=== PATIENT | female | born 1955 | race African-American/Black ===

== ENCOUNTER 2020-02-24 12:39 | Inpatient (IN) | payer OTHER ==
[~2020-02-24] VITALS: Ht 170.2 cm; Wt 110.2 kg
[~2020-02-24 12:39] MED LIST: ADVIL100 M2 PO; AMBIEN 10 MG TA10 MG PO; AMITRIPTYLINE H25 M2 PO; ESTRACE0.5 MG PO; FLAGYL500 MG PO; KEFLEX500 MG PO; LIPITOR10 MG PO; LYRICA200 MG PO; METFORMIN HCL500 M2 PO; MORPHINE SULFAT15 M4 PO; NABUMETONE 500500 M1 PO; NEURONTIN 300300 M1 PO; NORCO 5-325 TA1 EACH PO; NORVASC 5 MG TAB5 MG PO; OMEPRAZOLE 20 M20 M1 PO; OXYCODONE HCL5 M1 PO; PERCOCET 5-3251 EACH PO; PERCOCET PO; PRISTIQ50 M1 PO; PRISTIQ50 MG PO; VICODIN 5-5001 EACH PO; WELLBUTRIN SR150 MG PO; ZANTAC 150MG T150 M1 PO
[2020-02-24 13:21] VITALS: BP 137/78
--- NOTE | 2020-02-24 14:33 | NUR ---
PT. ADMITTED FROM [facility]. SHE LIVES AT HOME AND CAME TO ER LAST NIGHT C/O MAJOR DEPRESSION AND SI WITH VAGUE IDEATION. SHE STATES SHE WAS DIAGNOSED 15 YEARS AGO WITH THE DEPRESSION. SHE STATES SHE HAS 3 GROWN DAUGHTERS THAT DO NOT TALK NICE TO HER WHICH CONTRIBUTES TO HER DEPRESSION. SHE LIVES ALONE IN AN APPARTMENT. HER DAUGHTERS CALL HER ON THE PHONE. SHE IS . SHE HAS A PMX OF HERNIA REPAIR, GALLBLADDER AND APPENDIX REMOVED, SURGERY TO HER LEFT KNEE 3 TIMES AND THEN IT WAS REPLACED. SHE ALSO HAVE A PLATE AND SCREWS IN HER RIGHT ANKLE. SHE HAS BEEN IN [facility] FOR MENTAL DEPRESSION BUT HAD TREATMENT THROUGH [facility]. SHE COMPLAINS OF GLOBAL PAIN THAT HAS BEEN TREATED BUT THE TREATMENTS HAVE NOT BEEN HELPFUL SO SHE REPORTS. SHE WAS TEARFUL THROUGHOUT THE INTERVIEW. SHE HAS A GOWN ON. SHE TOOK A SHOWER AFTER SHE GOT HERE. SHE DID RECEIVE LUNCH FROM THE KITCHEN. SHE STATES SHE HAS BACK ISSUES AND SHE RECEIVES INJECTIONS IN BACK, MUSCLE RELAXERS.
[2020-02-24 19:39] VITALS: BP 146/72
--- NOTE | 2020-02-25 04:53 | NUR ---
PT ALERT AND ORIENTED X4. AMBULATES INDEPENTLY. PT WAS IN HER ROOM TALKING WITH HER SISTER ON THE PHONE AT TIME OF ASSESSMENYT. PT WAS COOPERATIVE WITH ASSESSMENT. PT VOICED HAVING DEPRESSION, DENIES SI/HI AT THIS TIME. PT TOOK MEDS WHOLE THIS SHIFT. PT INFOMRED NURSING THAT SHE WAS UNABLE TO SLEEP, DESPITE GETTING HER SLEEP MEDS. FREDRICK MEDICAL TECHNICIAN PAGED. ONETIME MELATONIN ORDERED AND GIVEN. PT SELPT AFTERWARDS. PT CURRENTLY IN BED SLEEPING. WILL CONTINUE TO MONITOR.
[2020-02-25 08:29] VITALS: BP 126/57
--- NOTE | 2020-02-25 13:24 | NUR ---
Up ambulating in room with regular, steady gait. Alert and orientated X4. States she is depressed and concerned about how noisy it was last night. Also wants to be moved d/t roommate having sore on her bottom and using toilet. Roommate then told her she had been positive for COVID 19 and she expressed concern. Moved to 524 A per pt. request. Denies SI/HI. Breath sounds clear t/o, bilaterally equal. Reg HR auscultated. Color pink with brisk capillary refill and palpable peripheral pulses. No edema noted. Independent with voiding. Active bowel sounds over soft, rounded abdomen. States she is constipated. MOM given. Currently participating in group without s/o distress.
--- NOTE | 2020-02-25 15:12 | NUR ---
SW completed Psychosocial Assessment and Tx Plan for patient. During assessment, WILIAN has become aware that WILIAN knows 2 of patient's daughters and her son in-law. 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 WILIAN has had minimal contact with above family members but is connected to them through social media.
[2020-02-25 19:28] VITALS: BP 141/90
--- NOTE | 2020-02-26 04:42 | NUR ---
02-26-20 CARE TRANSFERED AT 1914 OBSERVED PT IN RM SITTING ON BED WITH EYES OPEN. 1954 PT AAOX3 PT CALM AND COOPERATIVE DURING NURSING ASSESSMENT, PT REPORTED SHE HAD NOT LAUGHED IN A LONG TIME AND WISH SHE COULD SHARE LAUGHS WITH HER THREE DAUGHTERS. PT REPORTED THEY ALWAYS TALKED SO MEAN TO ME, BUT DO CALL HER OFTEN. PT REPORTS SHE HAS PAIN IN HER JOINTS, MAINLY WRISTS, ELBOWS AND KNEES, PT SCALES PAIN AT 7 ON 0-10 SCALE. PT ALSO REPORTED SHE HAS NOT GONE TO BATHROOM SINCE 02/20/10 BUT WAS GIVEN MOM EALIER TODAY. ABD HYPO IN ALL FOUR QUADS. PT EMAR WAS REVIEWED PRIOR TO DRIVER/MERCHANDISER. AND NOTED STOOL SOFTNER BID AND PULLED TYLENOL 650MG FOR PAIN. PT HAS NOT APPEARED TO HAVE ANY ACUTE EMOTIONAL DISTRESS AND ZERO ACUTE MEDICAL DISTRESS. PT HAD ALSO REQUESTED HER SLEEP MEDICATION. WHEN RETURN TO REASSESS PAIN NOTED PT WAS RESTING RIGHT SIDE LYING WITH EYS CLOSED RR EVEN AND NONLABORED ON RA. WILL CONTINUE TO MONITOR PT PER [facility] PROTOCOL.
[2020-02-26 08:50] VITALS: BP 111/62
--- NOTE | 2020-02-26 16:36 | NUR ---
Patient declined group as she was laying in bed.
[2020-02-26 19:20] VITALS: BP 136/77
--- NOTE | 2020-02-26 23:45 | NUR ---
PT ALERT AND ORIENTED. PT WAS IN HER ROOM AT TIME OF ASSESSMENT. PT COMPLAINED OF HER RIGHT LEG FEELING TIGHT AND A LITTLE SWOLLEN WHICH WAS OBSERVED BY NURSING. PT DENIES ANXIETY AND/OR DEPRESSION. PT DENIES SI/HI. PT COMPLAINED OF PAIN. TYLENOL GIVEN WITH NIGHT MEDS. DR MARTÍNEZ NOTIFIED OF PT'S COMPLAINTS OF LEG TIGHTNESS AND SWELLING. PER DR MENDEZ, NOTIFY STERILISATION TECHNICIAN HOSPITALIST. ONCALL SPORTS DIRECTOR NOTIFED. US BLE ORDERED AND DONE. PT CURRENTLY IN HER ROOM SLEEPING. WILL CONTINUE TO MONITOR.
[2020-02-27 07:45] VITALS: BP 122/63
[2020-02-27 08:10] VITALS: BP 122/63
--- NOTE | 2020-02-27 08:30 | NUR ---
PT UP SET ABOUT HER DIET. SHE STATED SHE IS ON REGULAR DIET. PT MENU SHOWED DIEBETIC. PT WALKED BY NURSES DESK AND STATED THIS PLACE IS NOT FOR HER. SHE STATED SHE NEEDS MORE OF GROUPS FOR DISCUSSION INSTEAD OF KICKING A BALL OR LISTENING TO MUSIC. WILL TALK TO DOCTOR ABOUT CHANGING DIET.
--- NOTE | 2020-02-27 10:00 | NUR ---
SAT DOWN AND TALKED TO PATIENT. PT STATED SHE HAD RECENT LOSSES SUCH HER GRANDAUGHTER PASSED WITH SICKLE CELL DZ AND HER GRANDMOTHER AND HER DAD PASSED ON HER BIRTHDAY APRIL 01. SHE SAID HER SISTER IS SICK WITH POSS COVID. SHE HAS A DOG AT HOME THAT NEEDS ATTENDED TOO AND DOESN'T WANT HER SISTER TO GO INTO THE HOUSE IF SHE HAS COVID.
[2020-02-27 20:16] VITALS: BP 137/71
--- NOTE | 2020-02-28 01:37 | NUR ---
Care assumed of patient at 1915: Patient seated in dayroom at start of shift. Alert and oriented x4. Calm, pleasant and cooperative. Interacting well with staff and peers. Smiling, hopeful, goal directed. Patient rated depression as 5/10 which is an improvement due to being 10/10 upon admission. Reports anxiety 4/10 which is an improvement due to being 10/10 upon admission. Patient excited about going home tomorrow. Discussed coping mechanisms she has learned and the importance of caring for herself. Patient discussed how her daughters have been treating her and that it is now time to care for herself. Reports that she has multiple activities that she likes to complete, such as cooking, but stopped doing it "for some reason". Discussed remaining hopeful when visiting doctors about her chronic pain. However, denied pain upon assessment. Patient ate 100% HS snack. Took HS medication whole without difficulty. Denies SI/HI/AH/VH. Retired to bed at a reasonable hour. Was able to fall asleep without difficulty. Resting quietly at this time.
[2020-02-28 09:08] VITALS: BP 128/69
--- NOTE | 2020-02-28 12:10 | NUR ---
WILIAN D/C note WILIAN discussed with pt her SW handout that has contact info for Nay SALGADO. She mentioned she would like to be taxi'd to [facility] where her care is.
[2020-02-28 12:11] VITALS: BP 128/69
[2020-02-28] MEDS ORDERED: DICYCLOMINE HCL20 MG PO (12:13)
[2020-02-28] MEDS ORDERED: NORVASC10 MG PO (12:13)
[2020-02-28] MEDS ORDERED: ADULT LOW DOSE81 MG PO (12:14)
[2020-02-28] MEDS ORDERED: BUPROPION XL300 MG PO (12:15)
[2020-02-28] MEDS ORDERED: NEURONTIN600 MG PO (12:15)
[2020-02-28] MEDS ORDERED: COLACE100 MG PO (12:16)
[2020-02-28] MEDS ORDERED: GLUCOPHAGE500 MG PO (12:17)
--- NOTE | 2020-02-28 14:30 | NUR ---
DISCHARGE INSTRUCTIONS REVIEWED WITH PATIENT INCLUDING WHEN TO SEEK EMERGENCY TX,MEDICATIONS DOSING AND TIMES -RX PROVIDED AND FOLLOW UP RECCOMENDATIONS. PT STATES UNDERSTANDING AND DENIES QUESTIONS/CONVERNS. FULL RANGE AFFECT-STATES FEELS "A LOT BETTER-I'M GOING TO START TAKING BETTER CARE OF MYSELF" DENIES SI/SH. DISCHARGED AMBULATORY ACCOMPNIED BY NURSING STAFF TO AWAITING TAXI.PERSONAL BELONGINGS SENT.
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
--- NOTE | 2020-02-29 23:07 | D ---
[facility] [place] [address] DISCHARGE SUMMARY Name: SHAYNE SOLORIO Room #: 524A-A [facility] [place] M.R.#: [id number] Admission: 02/24/20 Attend Phys: Cale Sesay DO Discharge: 02/28/20 Date of : 55 Report #: [id number] THIS REPORT FOR: cc: Lena Singletary MD,Lena Sesay,Cale Silverio DO ~ THIS REPORT FOR: //name// CC: Cale Singletary DATE OF SERVICE: 02/28/2020 INPATIENT PSYCHIATRIC DISCHARGE SUMMARY ATTENDING PHYSICIAN: Cale Sesay DO. ELECTRICAL ENGINEERING TEACHER AT THE TIME OF DISCHARGE: Dr. Bender. DISCHARGE DIAGNOSIS: Unspecified depressive disorder, improved. MEDICAL COMORBIDITIES: Include obesity, hypertension, hyperlipidemia, chronic pain, diabetes mellitus, irritable bowel syndrome, and probably gastroesophageal reflux disease. DISCHARGE PLAN: The patient is discharging to her home. The patient's aftercare is she will need to get an intake at [facility]. She has been engaged in services there in the past and she definitely would benefit from psychotherapy as well as psychiatric medication management issues. Diabetic 1800-calorie diet. Activity level as tolerated. No alcohol, no illicit drugs. The patient was given suicide crisis hotline information. She is on Bentyl 20 mg oral 3 times a day for IBS, Norvasc 10 mg oral daily for hypertension. She will monitor her blood pressure twice a week. She was counseled on this. Aspirin 81 mg oral daily for heart protection. Gabapentin 600 mg oral 3 times a day, she was given a 30-day prescription for that. Bupropion XL 300 mg p.o. daily. The patient was counseled the benefit versus risk of this medication and should be reviewed with outpatient provider as she requested discharge today, but did report significant obsessive compulsive disorder symptomatology and she may benefit from more SSRI type drugs such as sertraline or fluoxetine, but these decisions will need to be made outpatient. Docusate 100 mg p.o. b.i.d. for bowel motility, metformin hydrochloride 500 mg p.o. b.i.d. with meals, atorvastatin 20 mg p.o. at bedtime for hyperlipidemia, omeprazole 20 mg p.o. twice daily for GERD. Her sleep regimen was 10 mg p.o. at bedtime of zolpidem, Benadryl 25-50 mg as well as a 5 mg melatonin. This was given during admission. The patient was advised of long-term goal of reducing the number of sleeping pills, but her sleep was much improved this admission. [facility] [address] [place] [address] DISCHARGE SUMMARY Name: SOLORIOSHAYNE D Room #: 524A-A [facility] [place] ..#: [id number] Admission: 02/24/20 Attend Phys: Cale Sesay, Discharge: 02/28/20 Date of : 55 Report #: [id number] Significant laboratories this admission were basically just blood sugar checks. Similarly, she had had medical admission in September, but she was sent over to us from [place], so laboratories were done there. REASON FOR ADMISSION: On 02/23 was suicidal ideation. Apparently, she is having disagreements with her 3 daughters, being derogatory, not wanting to be involved with her life. PAST PSYCHIATRIC HOSPITALIZATION: Ten years ago. HOSPITAL COURSE: The patient was admitted to Geriatric Psychiatry Unit. Initially, the patient was feeling very helpless. As I saw her on Thursday before the weekend, elected not to make any dramatic medication changes. When I returned Thursday, the patient was feeling well, not liking the Geriatric Psych Unit environment, requested discharge. Told her she had to stay the next day for us to finish setting up aftercare. On the day of discharge, the patient was not suicidal or homicidal, in fair condition for discharge. PHYSICAL EXAMINATION: VITAL SIGNS: Stable. MUSCULOSKELETAL: Normal gait and station. MENTAL STATUS EXAMINATION: This is a well-developed, fairly nourished black female, appearing stated age, wearing glasses. Attention intact. Concentration intact. Speech is normal rate, volume and tone. Thought process is linear and goal oriented. Thought content focused on discharge, future oriented, is interested in doing activities at [employer], is on disability. Denied suicidal or homicidal ideation, auditory, visual, or tactile hallucination. Memory not formally tested. Insight fair. Judgment fair. Fund of knowledge average range. PROGNOSIS: For this patient is fair to guarded and depends on her compliance with outpatient treatment, doing health promoting, developing better social support. She will definitely need psychotherapy. <ELECTRONICALLY SIGNED> By: Cale Sesay DO 02/29/20 2307 [id number] Cale Sesay DO /nt
== END 2020-02-28 13:45 | disposition home or self-care (01) | DRG 881 ==
LOC: SBH
PROVIDERS: ADMIT Psychiatry & Neurology Psychiatry; ATTEND Psychiatry & Neurology Psychiatry
DX: F32.9 Major depressive disorder, single episode, unspecified (principal); R45.851 Suicidal ideations; E66.9 Obesity, unspecified; E78.5 Hyperlipidemia, unspecified; G89.29 Other chronic pain; K58.9 Irritable bowel syndrome, unspecified; M79.7 Fibromyalgia; F41.9 Anxiety disorder, unspecified; G47.33 Obstructive sleep apnea (adult) (pediatric); I10 Essential (primary) hypertension; E11.9 Type 2 diabetes mellitus without complications; K57.90 Diverticulosis of intestine, part unspecified, without perforation or abscess without bleeding; K21.9 Gastro-esophageal reflux disease without esophagitis; Z96.652 Presence of left artificial knee joint; Z90.710 Acquired absence of both cervix and uterus; Z88.1 Allergy status to other antibiotic agents; Z68.38 Body mass index [BMI] 38.0-38.9, adult; Z88.8 Allergy status to other drugs, medicaments and biological substances; Z88.2 Allergy status to sulfonamides; Z90.49 Acquired absence of other specified parts of digestive tract; Z79.84 Long term (current) use of oral hypoglycemic drugs
CPT/HCPCS: 10880